=== PATIENT | male | born 1975 | race Caucasian/White ===

== ENCOUNTER 2024-06-16 16:21 | Observation (INO) | payer BC, SELFPAY ==
[2024-06-16 16:22] VITALS: BP 162/112; PULSE 97; RESP 16; TEMP 36.2; O2SAT 98; BMI 22.6
--- NOTE | 2024-06-16 17:43 | EKG12_ITS ---
Test Reason : CP Blood Pressure : / mmHG Vent. Rate : 076 BPM Atrial Rate : 076 BPM P-R Int : 140 ms QRS Dur : 088 ms QT Int : 368 ms P-R-T Axes : 078 078 060 degrees QTc Int : 414 ms Normal sinus rhythm Normal ECG Confirmed by SCOTTY WILKERSON, PATRICIA ([id number]), material expeditor ANDRZEJ QUINTERO ([id number]) on 06/17/2024 1:41:59 PM Referred By: Mauricio Go Confirmed By:PATRICIA FAJARDO MD
--- NOTE | 2024-06-16 17:55 | RAD_ITS ---
INDICATION: chest pain EXAMINATION/TECHNIQUE: X-RAY - XR Chest 2 Views COMPARISON: None. FINDINGS: The lungs are clear. The cardiomediastinal silhouette is unremarkable. No pleural effusion or pneumothorax. No acute osseous abnormalities. RAD/Chest PA and Lateral IMPRESSION: No acute radiographic abnormalities. Electronically Signed: Kavin Kirk MD at 18:10 EDT ,
[2024-06-16 17:58] LABS: Absolute Lymphocyte Count 2.67 X10^3/uL (0.83-4.51); Absolute Neutrophil Count 3.5 X10^3/uL (2.0-7.7); Basophil# 0.06 X10^3/uL; Basophil% 0.9 % (0-1); Eosinophil# 0.14 X10^3/uL; Eosinophils% 2.1 % (0-5); Hematocrit 42.7 % (40-54); Hemoglobin 14.7 g/dL (13.0-16.5); Lymphocyte # 2.67 X10^3/ul (0.83-4.51); Lymphocyte % 39.6 % (19-41); Mean Corp Hgb Conc 34.4 g/dL (32-36); Mean Corpuscular Hgb 30.3 pg (27.0-32.0); Monocyte# 0.42 X10^3/uL; Monocyte% 6.2 % (0-10); NRBC Flagged by Analyzer 0 % (0-5); Neutrophil # 3.45 X10^3/uL (2.7-7.7); Neutrophil % 51.1 % (47-70); Platelet Count 263 K/mm3 (150-450); RBC Distribution Width CV 11.9 % (11.6-14.6); RBC Distribution Width SD 38.7 fl (35.1-43.9); Red Blood Count 4.85 M/mm3 (4.6-6.2); White Blood Count 6.8 K/mm3 (4.4-11.0)
[2024-06-16 18:27] LABS: Anion Gap 5 (5-15); BUN 16 mg/dL (7-18); BUN/Creat Ratio 16.1 RATIO (10-20); Calcium,Total 9.4 mg/dL (8.5-10.1); Chloride 106 mmol/L (98-107); Creatinine, Serum 0.99 mg/dL (0.70-1.30); EST Glomerular Filtration Rate 85 mL/min (>60); Est Glom Filt Rate - Afr Amer 103 mL/min (>60); Estimated Creatinine Clearance 101.92 ml/min; Glucose 100 mg/dL (74-106); Potassium 3.9 mmol/L (3.5-5.1); Sodium Level 139 mmol/L (136-145); Troponin-I HS (w/2H Reflex) 7 pg/mL (3.0-78.0)
--- NOTE | 2024-06-16 18:29 | EDS_ITS ---
<Statement entered by Mauricio Go DO - 06/16/24 21:05> Patient was seen and examined with nurse tuan Flores All components of the history and physical confirmed and agreed. History of present illness and physical exam: Patient is a 49-year-old male with past medical history hypertension who presented to the emergency department for the chief complaint of chest pain that has been progressively worsening for the past month. He states that over the last month whenever he exerts himself trying to exercise lift something he gets left-sided chest pain. He states that he has been under a lot of stress recently as well. He states that his family has a strong history of heart disease and his brother had his first heart attack at 39 and a CABG with this heart attack. He states that he went on a walk yesterday evening with his and noted that he developed worsening symptoms he had to stop as he was having shortness of breath and chest pain. He states that when he stops his pain improves. He states that he has not had any cardiac evaluation in the past. Review of systems: Agree with above Physical exam: Agree with above MDM Patient is a 49-year-old male who presented to the emerged part with a chief complaint of left-sided chest pain. Patient will have a workup performed here on the differential diagnose includes Melamin to stable angina, ACS, pneumonia. Once workup is obtained reviewed he will be reevaluated. Patient CBC reviewed and showed no evidence leukocytosis white blood count normal at 6.8, hemoglobin stable 14.7, platelet count normal at 263. Patient sodium was noted to be normal at 139, potassium normal 3.9, creatinine normal at 0.99. Patient's troponin was normal at 7, TSH normal at 1.16. Patient's chest x-ray was reviewed as well and showed no acute radiographic abnormalities. This was reviewed by myself as well as by radiology. At this point time do believe the patient will warrant admission for further cardiac testing as he has a strong family history of heart disease at a young age and he has had progressively worsening symptoms as noted above. Patient case was discussed with hospitalist by Mark nurse practitioner who accept patient for admission. Patient was notified with all question concerns answered he is agreeable with this plan Final impression: Chest pain Disposition: Patient will be admitted to the hospital for further evaluation management Supervising attending attestation: Mauricio Go D.O. [facility] History of Present Illness Chief Complaint: Chest Pain Narrative Narrative: 49-year-old male with history of hypertension who presents to the emergency department for 1 month of chest pain. Pay states of the last month, whenever he exerts himself, which means trying to exercise, lifting something to help out of the house, he gets left-sided chest pain. Patient states has been under a great deal of stress as well. He does have some family history of CAD as well as a older brother that had his first heart attack at 39. Patient was having worsening pain with walking with his last evening, and she wants him to come get checked out. Patient denies any diaphoresis, denies any nausea or vomiting. Denies any history of blood clots to the legs or lungs, [place] any recent travel [facility] Medical History (Updated 06/16/24 @ 19:35 by SHARON Clayton) Anxiety and depression HTN (hypertension) Home Medications ?Medication ?Instructions ?Recorded ?Last Taken ?Type bupropion HCl 150 mg tablet,12 hr 150 mg PO DAILY 06/16/24 06/16/24 History sustained-release hydroxyzine HCl 25 mg tablet 25 mg PO QHS PRN insomnia 06/16/24 06/15/24 History losartan 25 mg tablet 25 mg PO DAILY 06/16/24 06/16/24 History sildenafil 50 mg tablet 50 mg PO DAILY PRN intercourse 06/16/24 Unknown History Allergy/AdvReac Type Severity Reaction Status Date / Time Penicillins (PCN) Allergy Mild Rash Verified 06/16/24 16:24 pollen extracts (pollens) Allergy Mild Other Verified 06/16/24 16:24 Social History Smoking Status: Never smoker ROS ROS ED ROS Narrative Constitutional: Negative for fever, chills, weight loss, weakness Eyes: Negative for vision loss, vision change, double vision ENT: Negative for any sore throat, ear pain, congestion Cardiovascular: Negative for any tightness, palpitations. Positive for left- sided chest pain Respiratory: Negative for any cough, sputum production, hemoptysis, dyspnea, dyspnea on exertion, orthopnea Gastrointestinal: Negative for any abdominal pain, nausea, vomiting, diarrhea, constipation, blood in stool, blood in vomit : Negative for any urinary frequency, dysuria, retention, blood in urine Muscle skeletal: Negative for any neck pain, back pain Neurological: Negative for any headache, syncope, dizziness Skin: Negative for any rashes, itching, abrasions, lacerations Psychiatric: Negative for any depression, anxiety, stress, suicidal ideation, homicidal ideation Hematologic: Negative for any excessive bruising, easy bleeding EXAM Physical Exam Narrative Exam Narrative: Vital signs reviewed. HEET: Head normocephalic atraumatic, TMs clear bilaterally. Posterior pharynx is clear, moist mucous membranes. Nares clear bilaterally. Neck: Supple with no lymphadenopathy or tenderness. No signs of meningismus. Cardiac: Irregular rhythm such as a PAC, no murmurs gallops or rubs, equal peripheral pulses bilaterally. Respiratory: Lungs clear to auscultation bilaterally. No chest tenderness. Abdomen: Soft, nontender, nondistended. No abdominal bruit or pulsatile masses. No hepatosplenomegaly Extremities: No peripheral edema, no signs of gross trauma or deformity. Active full range of motion of all extremities. Neuro: Cranial nerves II through XII intact, no focal neurological deficits. Skin: Clean dry and intact with no rash, purpura, petechiae, vesicles or pustules. Backs/flank: No CVA tenderness, no midline spinal tenderness, no deformity. Psych: Normal mood and affect. No SI, HI or acute psychosis. Const Vital Signs: 06/16/24 16:22 06/16/24 17:52 06/16/24 18:43 Temperature 97.1 F L Temperature Source Oral Pulse Rate 97 70 Respiratory Rate 16 11 L Respiratory Effort Normal Non-Labored Blood Pressure 162/112 H 131/93 H Blood Pressure Mean 128 105 Pulse Ox 98 96 Oxygen Delivery Method Room Air Room Air 06/16/24 19:31 Temperature 97.8 F Temperature Source Pulse Rate 73 Respiratory Rate 14 Respiratory Effort Blood Pressure 131/93 H Blood Pressure Mean 105 Pulse Ox 96 Oxygen Delivery Method [facility] Lab Data Labs: Laboratory Results - last 24 hr 06/16/24 17:51 WBC 6.8 RBC 4.85 Hgb 14.7 Hct 42.7 MCV 88.0 MCH 30.3 MCHC 34.4 RDW Std Deviation 38.7 RDW Coeff of Sharon 11.9 Plt Count 263 MPV 10.0 Immature Gran % (Auto) 0.100 Neut % (Auto) 51.1 Lymph % (Auto) 39.6 Long % (Auto) 6.2 Eos % (Auto) 2.1 Baso % (Auto) 0.9 Absolute Neuts (auto) 3.5 Absolute Lymphs (auto) 2.67 Nucleated RBC % 0 Sodium 139 Potassium 3.9 Chloride 106 Carbon Dioxide 28.0 Anion Gap 5 BUN 16 Creatinine 0.99 Estim Creat Clear Calc 101.92 Est GFR (MDRD) Af Amer 103 Est GFR (MDRD) Non-Af 85 BUN/Creatinine Ratio 16.1 Glucose 100 Calcium 9.4 Troponin I High Sens 7 TSH 1.160 Radiography Diagnostic Testing: Clinical Impression(s) from Imaging Studies Chest X-Ray 06/16/24 17:55 IMPRESSION: No acute radiographic abnormalities. Electronically Signed: Kavin Kirk MD at 18:10 EDT , EKG Normal sinus rhythm: Attestation: I personally reviewed and interpreted this EKG as follows: Comments: Normal sinus rhythm, rate of 76 bpm, CT 140 ms, QRS duration 88 ms, no acute ST elevation, no acute infarct noted. Treatment and Re-Evaluation :: Differential diagnosis includes however is not limited to: ACS, FL, unstable angina, anxiety, GERD Patient appears generally well, vital signs are stable, patient is nontoxic- appearing. Presenting to the emergency department complaints of left-sided chest pain for a month worse with exertion. Patient will receive a full cardiac workup including 2 troponins, basic laboratory values as well as chest x-ray. All radiologic examinations were read, reviewed by the emergency department attending. From these reads, a plan of care will be put in place. Patient is currently not having pain at this time. Patient's chest x-ray two-view shows no acute radiographic abnormalities. Patient's laboratory values showed a normal CBC, patient's chemistries are unremarkable. Patient's troponin initially was negative. TSH was normal at 1.16. Secondary the patient's story, exertional chest pain, family history, do we have the patient should be admitted to the hospital for a stress test. I will reach out to the hospitalist. Patient is agreeable with the plan Spoke with hospitalist. Patient stable for admission. Discharge Plan Triage Chief Complaint: Chest Pain ED Midlevel Provider: Mark Fernandes ED Provider: Go,Mauricio Dx/Rx/DC Orders Clinical Impression: Stable angina, Chest pain on exertion Prescriptions: No Action bupropion HCl 150 mg tablet sustained-release 12 hr 150 mg PO DAILY hydroxyzine HCl 25 mg tablet 25 mg PO QHS PRN (Reason: insomnia) sildenafil 50 mg tablet 50 mg PO DAILY PRN (Reason: intercourse) losartan 25 mg tablet 25 mg PO DAILY Primary Care Provider: Eric Hawthorne Referrals: Eric Hawthorne PA [Primary Care Provider] - Print Language: [place] Disposition Disposition: Acute Care Hospital [facility]
[2024-06-16 18:43] VITALS: BP 131/93; PULSE 70; RESP 11; O2SAT 96
[2024-06-16 19:31] VITALS: BP 131/93; PULSE 73; RESP 14; TEMP 36.6; O2SAT 96
--- NOTE | 2024-06-16 19:32 | PCM.HP.STD ---
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 ED on 06/16/24 with history of 1 approximately month of intermittent chest discomfort primarily when he exerts himself specifically reporting it to occur with exercise often lifting with left-sided discomfort with family history of CAD including older brother with his first HI at the age of 39 with worsening discomfort of the last 24 hours while even walking with his who eventually prompted him to come to the ED to have a more thorough evaluation to be cautious. He reports the discomfort primarily of the left side of the chest as a burning sensation 5-6 out of 10 at severity at its worst when it is occurring with no associated nausea, emesis, diaphoresis or dyspnea but he does report left upper extremity mild paresthesia involvement with these occasions quickly resolving once he rests. In the ED upon evaluation he is resting and denying any current chest discomfort. Workup in the ED included T97.1, heart 97, BP 162/112, respiratory rate 16, and 8% room air with most recent repeat vitals heart rate 70, BP 131/93, respiratory rate 11, 96% room air, CBC with WBC 6.8, human 14.7, platelet 263 without marked shift, BMP unremarkable, troponin 7, TSH 1.160, chest x-ray with no acute cardiopulmonary findings, EKG with sinus rhythm with no acute evidence of ischemia. In the ED patient administered no medications. [facility] Medical History Anxiety and depression HTN (hypertension) Home Medications ?Medication ?Instructions ?Recorded ?Last Taken ?Type bupropion HCl 150 mg tablet,12 hr 150 mg PO DAILY 06/16/24 06/16/24 History sustained-release hydroxyzine HCl 25 mg tablet 25 mg PO QHS PRN insomnia 06/16/24 06/15/24 History losartan 25 mg tablet 25 mg PO DAILY 06/16/24 06/16/24 History sildenafil 50 mg tablet 50 mg PO DAILY PRN intercourse 06/16/24 Unknown History Allergy/AdvReac Type Severity Reaction Status Date / Time Penicillins (PCN) Allergy Mild Rash Verified 06/16/24 16:24 pollen extracts (pollens) Allergy Mild Other Verified 06/16/24 16:24 Family History (Updated 06/16/24 @ 22:[address] Cheli Alarcon MD) Mother Carotid arterial disease Hypertension Father Hypertension CVA (cerebral vascular accident) Brother Hypertension Myocardial infarction First heart attack at age 39. CAD (coronary artery disease) Heart disease Surgical History (Updated 06/16/24 @ 22:[address] Cheli Alarcon MD) History of shoulder surgery Social History (Updated 06/16/24 @ 22:[address] Cheli Alarcon MD) household members: spouse, family and children Smoking Status: Never smoker alcohol intake: current alcohol intake frequency: holidays/special occasions only substance use type: does not use ROS ROS Narrative Admission Review of Systems: CONSTITUTIONAL: No weight loss, fever, chills, weakness or fatigue. HEENT: Eyes: No visual loss, blurred vision, double vision or yellow sclerae. Ears, Nose, Throat: No hearing loss, sneezing, congestion, runny nose or sore throat. SKIN: No rash or itching, lesions, wounds. CARDIOVASCULAR: + Chest discomfort/burning. No palpitations, edema, orthopnea, syncopal events. RESPIRATORY: No shortness of breath, cough or sputum, wheezing, hemoptysis. GASTROINTESTINAL: No anorexia, nausea, vomiting or diarrhea, abdominal pain, melena, BRBPR. GENITOURINARY: No dysuria, frequency, urgency or retention. NEUROLOGICAL: + Left upper extremity paresthesias with chest discomfort episodes. No headache, dizziness, syncope, paralysis, ataxia, focal weakness, change in bowel or bladder control, seizure. MUSCULOSKELETAL: + muscle, back pain, joint pain or stiffness. HEMATOLOGIC: No anemia, bleeding or bruising. LYMPHATICS: No enlarged nodes. No history of splenectomy. PSYCHIATRIC: + History of anxiety and depression. ENDOCRINOLOGIC: No reports of sweating, cold or heat intolerance. No polyuria or polydipsia. ALLERGIES: No history of asthma, hives, eczema or rhinitis. Vital Signs Vital Signs Vital Signs: 06/16/24 16:22 06/16/24 17:52 06/16/24 18:43 Temperature 97.1 F L Temperature Source Oral Pulse Rate 97 70 Respiratory Rate 16 11 L Respiratory Effort Normal Non-Labored Blood Pressure 162/112 H 131/93 H Blood Pressure Mean 128 105 Pulse Ox 98 96 Oxygen Delivery Method Room Air Room Air Weight Weight: 176 lb Body Mass Index (BMI) 22.6 Physical Exam Narrative Physical Examination: General: Awake, alert, oriented x 3 and cooperative, seated upright in the bed, denies any current chest discomfort. Skin: Normal color, normal turgor, no icterus, no cyanosis. HEENT: AT/NC, EOMI, PERRLA, MMM, no carotid bruits or JVD noted. Lungs: CTA bilaterally, moderate effort, mild decrease BL bases, no rales, ronchi or wheezing. Heart: Regular rate and rhythm; no gallop, rub audible. Abdomen: Soft, NTTP, ND, normal BS, no appreciated HSM. Extremities: No cyanosis, clubbing, or edema. Neurological: Patient awake, alert, oriented as noted, cognitive function intact; pupils equally reactive to light and accommodation, cranial nerves grossly normal, moving all 4 extremities, no focal deficits, strength preserved. Psychiatric: Affect appears mildly fatigued otherwise normal, no acute evidence of depressive or anxiety feelings but does report underlying history especially more stress with his job, notes family life is going very well. Results Lab / Micro Data 06/16/24 17:51 06/16/24 17:51 Labs: Laboratory Results - last 24 hr 06/16/24 17:51: WBC 6.8, RBC 4.85, Hgb 14.7, Hct 42.7, MCV 88.0, MCH 30.3, MCHC 34.4, RDW Std Deviation 38.7, RDW Coeff of Sharon 11.9, Plt Count 263, MPV 10.0, Immature Gran % (Auto) 0.100, Neut % (Auto) 51.1, Lymph % (Auto) 39.6, [place] % (Auto) 6.2, Eos % (Auto) 2.1, Baso % (Auto) 0.9, Absolute Neuts (auto) 3.5, Absolute Lymphs (auto) 2.67, Nucleated RBC % 0, Sodium 139, Potassium 3.9, Chloride 106, Carbon Dioxide 28.0, Anion Gap 5, BUN 16, Creatinine 0.99, Estim Creat Clear Calc 101.92, Est GFR (MDRD) Af Amer 103, Est GFR (MDRD) Non-Af 85, BUN/Creatinine Ratio 16.1, Glucose 100, Calcium 9.4, Troponin I High Sens 7, TSH 1.160 Imaging Radiology Impression Chest X-Ray 06/16/24 17:55 IMPRESSION: No acute radiographic abnormalities. Electronically Signed: Kavin Kirk MD at 18:10 EDT , Assessment & Plan Assessment/Plan (1) Chest pain: PLAN: Plan The patient is a 49 y/o M w/ PMHx: Anxiety and Depression/Chronic insomnia, HTN who presents to the [facility] ED on 06/16/24 with history of 1 month of intermittent chest discomfort primarily when he exerts himself specifically reporting it to occur with exercise often lifting with left-sided discomfort with family history of CAD including older brother with his first HI at the age of 39 with worsening discomfort of the last 24 hours while even walking with his who eventually prompted him to come to the ED to have a more thorough evaluation to be cautious. #1. Chest Pain: EKG in ED with no acute evidence of ischemia with sinus rhythm, CXR w/ no acute cardiopulmonary finding, initial trop 7. Will admit to PCU, place on a monitored bed to assure no acute myocardial infarction with serial cardiac enzymes and EKGs. If repeat serial cardiac enzymes and EKGs remain unremarkable will pursue a.m. cardiac exercise stress testing. FLP in AM. Magnesium level requested. Maintain on aspirin therapy, nitroglycerin as needed. UDS requested. #2. Hypertension: Continue home regimen including losartan with further adjustments as needed given BP upon presentation not within appropriate range, PRN hydralazine. #3. Anxiety and depression: We will continue patient on bupropion and hydroxyzine regimen. #4. DVT prophylaxis: Low risk. Charges/Coding Visit Charges Inpatient E&M: 37726 Init Hosp L2
[2024-06-16 19:55] LABS: Reflex Troponin-HS? (from REC) Y
[2024-06-16 20:42] VITALS: BMI 21.9
[2024-06-16 20:45] VITALS: BP 141/104; PULSE 58; RESP 18; TEMP 36.4; O2SAT 94
[2024-06-16 20:47] LABS: Magnesium 2.1 mg/dL (1.6-2.6)
[2024-06-16 21:11] LABS: Amphetamine Urine NEGATIVE (<1000 ng/mL); Barbiturate Urine VISTA NEGATIVE (< 200 ng/mL); Benzodiazepine Urine VISTA NEGATIVE (< 200 ng/mL); Cocaine Urine VISTA NEGATIVE (< 300 ng/mL); Ecstacy Urine VISTA NEGATIVE (< 500 ng/mL); Methadone Urine VISTA NEGATIVE (< 300 ng/mL); Opiates Urine NEGATIVE (< 300 ng/mL); PCP Urine NEGATIVE (< 25 ng/mL); THC Urine VISTA NEGATIVE (< 50 ng/mL); Vista UDS pH Range 7
[2024-06-16] MEDS: hydrOXYzine PAM 25 MG Capsule PO (21:59)
[2024-06-16] MEDS: Losartan Potassium 25 MG Tablet PO (21:59)
[2024-06-16] MEDS: Aspirin 325 MG Tablet PO (22:01)
[2024-06-16 22:32] LABS: Troponin-I HS 8 pg/mL (3.0-78.0)
[2024-06-16 23:41] LABS: Troponin-I HS 7 pg/mL (3.0-78.0)
[2024-06-17] VITALS (17 sets, daily range): BP systolic 115–137; BP diastolic 79–98; PULSE 59–81; RESP 16–18; TEMP 36.1–36.4; O2SAT 96–99
[2024-06-17] MEDS: Aspirin 81 MG TAB.CHEW PO (05:53)
[2024-06-17] MEDS: Losartan Potassium 25 MG Tablet PO (05:53)
--- NOTE | 2024-06-17 05:55 | EKG12_ITS ---
Test Reason : AM Blood Pressure : / mmHG Vent. Rate : 062 BPM Atrial Rate : 062 BPM P-R Int : 144 ms QRS Dur : 092 ms QT Int : 414 ms P-R-T Axes : 068 041 039 degrees QTc Int : 420 ms Normal sinus rhythm Normal ECG When compared with ECG of 16-JUN-2024 21:43, MANUAL COMPARISON REQUIRED, DATA IS UNCONFIRMED Confirmed by SCOTTY WILKERSON, PATRICIA ([id number]), primer expeditor and drier ATUL PIZARRO ([id number]) on 06/21/2024 11:26:10 AM Referred By: Mauricio Go Confirmed By:PATRICIA FAJARDO MD
[2024-06-17 06:28] LABS: Absolute Lymphocyte Count 2.35 X10^3/uL (0.83-4.51); Absolute Neutrophil Count 2.6 X10^3/uL (2.0-7.7); Basophil# 0.07 X10^3/uL; Basophil% 1.2 % (0-1); Eosinophil# 0.21 X10^3/uL; Eosinophils% 3.7 % (0-5); Hematocrit 42.6 % (40-54); Hemoglobin 14.5 g/dL (13.0-16.5); Lymphocyte # 2.35 X10^3/ul (0.83-4.51); Lymphocyte % 41.1 % (19-41); Mean Corpuscular Hgb 30.5 pg (27.0-32.0); Mean Corpuscular Volume 89.7 fL (80-94); Mean Platelet Vol. 10.3 fl (6.2-12.0); Monocyte# 0.46 X10^3/uL; NRBC Flagged by Analyzer 0 % (0-5); Neutrophil # 2.62 X10^3/uL (2.7-7.7); Neutrophil % 45.8 % (47-70); Platelet Count 244 K/mm3 (150-450); RBC Distribution Width CV 11.9 % (11.6-14.6); Red Blood Count 4.75 M/mm3 (4.6-6.2); White Blood Count 5.7 K/mm3 (4.4-11.0)
[2024-06-17 06:56] LABS: ALB/GLOB Ratio 1.1 RATIO (0.9-2.4); AST(SGOT) 14 U/L (15-37); Alanine Aminotransfer ALT/SGPT 26 U/L (16-61); Albumin, Serum 3.7 g/dL (3.2-5.0); Alkaline Phosphatase 76 U/L (45-117); Anion Gap 3 (5-15); BUN 15 mg/dL (7-18); BUN/Creat Ratio 15.7 RATIO (10-20); Calcium,Total 8.9 mg/dL (8.5-10.1); Chloride 108 mmol/L (98-107); Cholesterol 184 mg/dL (200); Creatinine, Serum 0.95 mg/dL (0.70-1.30); EST Glomerular Filtration Rate 89 mL/min (>60); Est Glom Filt Rate - Afr Amer 108 mL/min (>60); Estimated Creatinine Clearance 102.97 ml/min; Globulin 3.4 g/dL (2.2-4.2); Glucose 90 mg/dL (74-106); High Density Lipoprotein 49 mg/dL; Potassium 3.9 mmol/L (3.5-5.1); Protein, Total 7.1 g/dL (6.4-8.2); Sodium Level 140 mmol/L (136-145); Triglycerides 81 mg/dL; Very Low Density Lipoprotein 16 mg/dL (5-40)
--- NOTE | 2024-06-17 08:00 | PN.HOSP_ITS ---
Reason for Visit Reason for Visit: Diagnoses Chest pain, unspecified (06/16/24) Subjective Subjective Patient is a 49-year-old gentleman presenting with chest pain Objective Data Objective Data Vital Signs: Vital Signs Temp Pulse Resp BP Pulse Ox O2 Del Method 97.6 F L 67 18 123/79 H 98 Room Air 06/17/24 03:00 06/17/24 03:00 06/17/24 03:00 06/17/24 03:00 06/17/24 03:00 06/17/24 03:00 Oxygen Delivery Method Room Air Weight: 77.4 kg Body Mass Index (BMI) 21.9 Lab / Micro Data 06/17/24 06:12 06/17/24 06:12 Labs: Laboratory Results - last 24 hr 06/16/24 17:51: WBC 6.8, RBC 4.85, Hgb 14.7, Hct 42.7, MCV 88.0, MCH 30.3, MCHC 34.4, RDW Std Deviation 38.7, RDW Coeff of Sharon 11.9, Plt Count 263, MPV 10.0, Immature Gran % (Auto) 0.100, Neut % (Auto) 51.1, Lymph % (Auto) 39.6, [place] % (Auto) 6.2, Eos % (Auto) 2.1, Baso % (Auto) 0.9, Absolute Neuts (auto) 3.5, Absolute Lymphs (auto) 2.67, Nucleated RBC % 0, Sodium 139, Potassium 3.9, Chloride 106, Carbon Dioxide 28.0, Anion Gap 5, BUN 16, Creatinine 0.99, Estim Creat Clear Calc 101.92, Est GFR (MDRD) Af Amer 103, Est GFR (MDRD) Non-Af 85, BUN/Creatinine Ratio 16.1, Glucose 100, Calcium 9.4, Troponin I High Sens 7, TSH 1.160 06/16/24 20:30: Magnesium 2.1 06/16/24 20:42: Urine Opiates Screen NEGATIVE, Urine Methadone Screen NEGATIVE, Ur Barbiturates Screen NEGATIVE, Ur Phencyclidine Scrn NEGATIVE, Ur Amphetamines Screen NEGATIVE, MDMA (Ecstasy) Screen NEGATIVE, U Benzodiazepines Scrn NEGATIVE, Urine Cocaine Screen NEGATIVE, U Cannabinoids Screen NEGATIVE, Ur Drug Screen Comment 06/16/24 20:47: Troponin I High Sens 8 06/16/24 22:55: Troponin I High Sens 7 06/17/24 06:12: WBC 5.7, RBC 4.75, Hgb 14.5, Hct 42.6, MCV 89.7, MCH 30.5, MCHC 34.0, RDW Std Deviation 39.0, RDW Coeff of Sharon 11.9, Plt Count 244, MPV 10.3, Immature Gran % (Auto) 0.200, Neut % (Auto) 45.8 L, Lymph % (Auto) 41.1 H, [place] % (Auto) 8.0, Eos % (Auto) 3.7, Baso % (Auto) 1.2 H, Absolute Neuts (auto) 2.6, Absolute Lymphs (auto) 2.35, Nucleated RBC % 0, Sodium 140, Potassium 3.9, C hloride 108 H, Carbon Dioxide 28.0, Anion Gap 3 L, BUN 15, Creatinine 0.95, Estim Creat Clear Calc 102.97, Est GFR (MDRD) Af Amer 108, Est GFR (MDRD) Non-Af 89, BUN/Creatinine Ratio 15.7, Glucose 90, Calcium 8.9, Total Bilirubin 0.60, A ST 14 L, ALT 26, Alkaline Phosphatase 76, Total Protein 7.1, Albumin 3.7, Globulin 3.4, Albumin/Globulin Ratio 1.1, Triglycerides 81, Cholesterol 184, LDL Cholesterol 119, VLDL Cholesterol 16, HDL Cholesterol 49 Radiography Diagnostic Testing: Radiology Impression Chest X-Ray 06/16/24 17:55 IMPRESSION: No acute radiographic abnormalities. Electronically Signed: Kavin Kirk MD at 18:10 EDT , Physical Exam Narrative GENERAL: cooperative HEENT: Atraumatic; normocephalic EYES; Anicteric, Normal Conjunctiva NECK; supple, normal thyroid, RESPIRATORY: Diminished to auscultation CARDIOVASCULAR: Regular S1 S2, GI: soft, normoactive bowel sounds, : No Renal angle tenderness; EXTREMITIES: No edema, no clubbing, MUSCULOSKELETAL: no muscle wasting NEURO: Awake; no lateralizing signs. SKIN: No Rash PSYCH; Flat affect Assessment & Plan Assessment/Plan (1) Chest pain: PLAN: Plan Patient is a 49-year-old gentleman presenting with chest pain 1. Chest pain ? Patient has been admitted to a monitored bed plan is to rule out [place] with serial cardiac enzymes plan is for patient to undergo subsequent evaluation with a nuclear stress test ? Patient stress test came back positive for stress-induced ischemia. Case discussed with Dr. Rm plans for patient to undergo left heart catheterization with intervention if warranted 2. Hypertension ? Blood pressure controlled, home medications continued with dose adjustment as needed 3. Depression with anxiety ? Patient is on bupropion as well as hydroxyzine did continue 4. DVT prophylaxis ? SC Lovenox Time spent in the patient's overall evaluation,decision-making process, review of diagnostic data, adjustment of management, discussion with other providers, nursing nursing and ancillary staff involved in patient's care documentation, 45 minutes Charges/Coding Visit Charges Inpatient E&M: 54058 Subs Hosp L2
[2024-06-17] MEDS: buPROPion (SR) 150 MG Tablet.SA PO (09:47)
--- NOTE | 2024-06-17 10:57 | STRESSREP_ITS ---
Stress Test Report Date: 06/17/2024 Procedure: Exercise tolerance test/imaging study Indications: Chest pain Consent: Per the patient Procedure: The patient exercised on a Sarmad protocol for 9 minutes achieving a peak heart rate of 144 bpm (84% predicted maximal heart rate) with a peak blood pressure 140/72 mmHg and a peak MET capacity of 10.1 METs. The baseline ECG demonstrated normal sinus rhythm. The peak exercise ECG demonstrated sinus tachycardia with upsloping ST depressions in the inferior and lateral leads. EKG during recovery revealed about [address] depressions about 3 to 4 minutes into recovery in the inferior leads and to a lesser extent in the lateral leads. [There were no cardiac dysrhythmias pretest, during exercise, or recovery]. The functional capacity was considered normal for age. Patient had chest pain with exertion that resolved around 4 minutes into recovery. The examination was discontinued secondary to chest pain. Impression: 1. Technically adequate exercise tolerance test 2. Stress test is positive for exercise-induced EKG changes of ischemia 3. The test test is positive for exercise-induced chest pain 4. Functional capacity is normal for age 5. Nuclear images pending Myocardial perfusion imaging study: Technique: The patient was injected with 11.4 mCi of technetium 99m Cardiolite and subsequently rest SPECT Cardiolite nuclear imaging was obtained in the horizontal long, vertical long, and short axis views. The patient exercised on a Sarmad protocol. Please see above for details. The patient was injected with 34.2 mCi of technetium 99m Cardiolite and subsequently stress SPECT Cardiolite nuclear imaging was obtained in the horizontal long, vertical long, and short axis views. A gated Cardiolite study at peak stress was obtained. Interpretation: Rest and stress SPECT Cardiolite nuclear imaging status post realignment, normalization, and attenuation correction, demonstrates no significant defects on the rest images. On the stress images there is decreased myocardial radioisotope uptake in the septum, distal anterior wall and apex suggestive of ischemia involving these territories. The gated Cardiolite study demonstrates mild apical hypokinesis. The reported LVEF is 59%. Impression: 1. There is evidence of ischemia involving the septum, distal anterior wall and apex. 2. The gated Cardiolite study reports an LVEF of 59%. This note was generated with [employer] software. It may contain incorrect words, spelling, and punctuation that were not noted in checking the note before signing.
--- NOTE | 2024-06-17 11:32 | NURSING ---
Gave repot to Angel in cathode washer
--- NOTE | 2024-06-17 11:43 | CON.PCM.CA_ITS ---
Assessment & Plan Assessment/Plan (1) Chest pain on exertion: PLAN: Patient has new onset angina and abnormal stress test. Discussed treatment options in detail with the patient including risks and benefits. We will proceed with coronary angiography. Patient understands the risks and benefits and wishes to proceed. Rest of the management will be based on angiographic findings. HPI Consult Data Date of Consult: 06/17/24 HPI Narrative Reason for Consultation: Chest pain, abnormal stress test HPI Narrative: BOOM ROJAS, is a 49 M who presents chest pain on exertion that has been going on for about a month. He underwent stress testing today which revealed possible ischemia involving the LAD territory. Review of systems: All systems reviewed. All else is negative except that in HPI [facility] Medical History Anxiety and depression HTN (hypertension) Home Medications ?Medication ?Instructions ?Recorded ?Last Taken ?Type bupropion HCl 150 mg tablet,12 hr 150 mg PO DAILY 06/16/24 06/16/24 History sustained-release hydroxyzine HCl 25 mg tablet 25 mg PO QHS PRN insomnia 06/16/24 06/15/24 History losartan 25 mg tablet 25 mg PO DAILY 06/16/24 06/16/24 History sildenafil 50 mg tablet 50 mg PO DAILY PRN intercourse 06/16/24 Unknown History Allergy/AdvReac Type Severity Reaction Status Date / Time Penicillins (PCN) Allergy Mild Rash Verified 06/16/24 16:24 pollen extracts (pollens) Allergy Mild Other Verified 06/16/24 16:24 Family History (Updated 06/16/24 @ 22:[address] Cheli Alarcon MD) Mother Carotid arterial disease Hypertension Father Hypertension CVA (cerebral vascular accident) Brother Hypertension Myocardial infarction First heart attack at age 39. CAD (coronary artery disease) Heart disease Surgical History (Updated 06/16/24 @ 22:[address] Cheli Alarcon MD) History of shoulder surgery Social History (Updated 06/16/24 @ 22:[address] Cheli Alarcon MD) household members: spouse, family and children Smoking Status: Never smoker alcohol intake: current alcohol intake frequency: holidays/special occasions only substance use type: does not use Physical Exam Const alert and oriented x3 HEENT normocephalic Eyes no scleral icterus Resp normal respiratory effort Cardio regular rate and regular rhythm Psych mental status grossly normal Risk Stratification Risk Stratification Applicable: No Charges/Coding Visit Charges Inpatient E&M: 95717 Init Hosp L1 Objective Data Vital Signs: Vital Signs Temp Pulse Resp BP Pulse Ox O2 Del Method 97.5 F L 69 18 122/88 H 97 Room Air 06/17/24 09:45 06/17/24 09:45 06/17/24 09:45 06/17/24 09:45 06/17/24 09:45 06/17/24 09:45 Oxygen Delivery Method Room Air Weight: 170 lb 10.205 oz Body Mass Index (BMI) 21.9 Lab / Micro Data 06/17/24 06:12 06/17/24 06:12 Labs: Laboratory Results - last 24 hr 06/16/24 17:51: WBC 6.8, RBC 4.85, Hgb 14.7, Hct 42.7, MCV 88.0, MCH 30.3, MCHC 34.4, RDW Std Deviation 38.7, RDW Coeff of Sharon 11.9, Plt Count 263, MPV 10.0, Immature Gran % (Auto) 0.100, Neut % (Auto) 51.1, Lymph % (Auto) 39.6, Hemphill % (Auto) 6.2, Eos % (Auto) 2.1, Baso % (Auto) 0.9, Absolute Neuts (auto) 3.5, Absolute Lymphs (auto) 2.67, Nucleated RBC % 0, Sodium 139, Potassium 3.9, Chloride 106, Carbon Dioxide 28.0, Anion Gap 5, BUN 16, Creatinine 0.99, Estim Creat Clear Calc 101.92, Est GFR (MDRD) Af Amer 103, Est GFR (MDRD) Non-Af 85, BUN/Creatinine Ratio 16.1, Glucose 100, Calcium 9.4, Troponin I High Sens 7, TSH 1.160 06/16/24 20:30: Magnesium 2.1 06/16/24 20:42: Urine Opiates Screen NEGATIVE, Urine Methadone Screen NEGATIVE, Ur Barbiturates Screen NEGATIVE, Ur Phencyclidine Scrn NEGATIVE, Ur Amphetamines Screen NEGATIVE, MDMA (Ecstasy) Screen NEGATIVE, U Benzodiazepines Scrn NEGATIVE, Urine Cocaine Screen NEGATIVE, U Cannabinoids Screen NEGATIVE, Ur Drug Screen Comment 06/16/24 20:47: Troponin I High Sens 8 06/16/24 22:55: Troponin I High Sens 7 06/17/24 06:12: WBC 5.7, RBC 4.75, Hgb 14.5, Hct 42.6, MCV 89.7, MCH 30.5, MCHC 34.0, RDW Std Deviation 39.0, RDW Coeff of Sharon 11.9, Plt Count 244, MPV 10.3, Immature Gran % (Auto) 0.200, Neut % (Auto) 45.8 L, Lymph % (Auto) 41.1 H, Hemphill % (Auto) 8.0, Eos % (Auto) 3.7, Baso % (Auto) 1.2 H, Absolute Neuts (auto) 2.6, Absolute Lymphs (auto) 2.35, Nucleated RBC % 0, Sodium 140, Potassium 3.9, C hloride 108 H, Carbon Dioxide 28.0, Anion Gap 3 L, BUN 15, Creatinine 0.95, Estim Creat Clear Calc 102.97, Est GFR (MDRD) Af Amer 108, Est GFR (MDRD) Non-Af 89, BUN/Creatinine Ratio 15.7, Glucose 90, Calcium 8.9, Total Bilirubin 0.60, A ST 14 L, ALT 26, Alkaline Phosphatase 76, Total Protein 7.1, Albumin 3.7, Globulin 3.4, Albumin/Globulin Ratio 1.1, Triglycerides 81, Cholesterol 184, LDL Cholesterol 119, VLDL Cholesterol 16, HDL Cholesterol 49 Cardiology Labs/Tests 06/16/24 17:51: WBC 6.8, RBC 4.85, Hgb 14.7, Hct 42.7, MCV 88.0, MCH 30.3, MCHC 34.4, Plt Count 263, MPV 10.0, Immature Gran % (Auto) 0.100, Neut % (Auto) 51.1, Lymph % (Auto) 39.6, Hemphill % (Auto) 6.2, Eos % (Auto) 2.1, Baso % (Auto) 0.9, Absolute Neuts (auto) 3.5, Nucleated RBC % 0, Sodium 139, Potassium 3.9, Chloride 106, Carbon Dioxide 28.0, Anion Gap 5, BUN 16, Creatinine 0.99, Est GFR (MDRD) Af Amer 103, Est GFR (MDRD) Non-Af 85, BUN/Creatinine Ratio 16.1, Glucose 100, Calcium 9.4 06/16/24 20:30: Magnesium 2.1 06/17/24 06:12: WBC 5.7, RBC 4.75, Hgb 14.5, Hct 42.6, MCV 89.7, MCH 30.5, MCHC 34.0, Plt Count 244, MPV 10.3, Immature Gran % (Auto) 0.200, Neut % (Auto) 45.8 L, Lymph % (Auto) 41.1 H, Hemphill % (Auto) 8.0, Eos % (Auto) 3.7, Baso % (Auto) 1.2 H, Absolute Neuts (auto) 2.6, Nucleated RBC % 0, Sodium 140, Potassium 3.9, C hloride 108 H, Carbon Dioxide 28.0, Anion Gap 3 L, BUN 15, Creatinine 0.95, Est GFR (MDRD) Af Amer 108, Est GFR (MDRD) Non-Af 89, BUN/Creatinine Ratio 15.7, Glucose 90, Calcium 8.9, Total Bilirubin 0.60, Triglycerides 81, Cholesterol 184, LDL Cholesterol 119, VLDL Cholesterol 16, HDL Cholesterol 49 Rhythm: EKG: ECHO: Stress Test: Cardiac Cath: PCI: CT Surgery: Holter monitor: EPS: PPM: CXR: Chest CT Scan: Radiography Diagnostic Testing: Radiology Impression Chest X-Ray 06/16/24 17:55 IMPRESSION: No acute radiographic abnormalities. Electronically Signed: Kavin Kirk MD at 18:10 EDT ,
[2024-06-17] MEDS: 0.9% Normal Saline (1000mL) 1,000 ML 75 ML IV (13:00)
--- NOTE | 2024-06-17 13:36 | CL.I_ITS ---
Patient Name: BOOM ROJAS Study Date: 06/17/2024 Performing: Golden Rm MD Ht: 74 inches 187.96 cm : 1975 Wt: 170.64 lbs 77.4 kg Age: 49 Gender: male BSA: 2.03 PROCEDURE(S) PERFORMED DC02-(09670)LHC/COR IC12-(28865/C9600)DANO W/WO PTCA, SINGLE CORONARY ARTERY CLINICAL PROFILE AND CO-MORBIDITIES Indications: New Onset Angina <= 2 months Heart Failure: None Stress/Imaging Date: 06/17/24 Stress Test with SPECT MPI: Positive High Risk CONCLUSIONS CAD as described. Successful drug-eluting stent to mid LAD as described. RECOMMENDATIONS DESCRIPTION OF PROCEDURE The patient arrived to the procedure lab. The risks and benefits of the procedure as well as a full description of our services here and lack of surgical backup were fully explained to the patient and/or their significant other prior to the catheterization. The Timeout was completed, verifying the correct patient and procedure. The patient's procedural site was prepped and draped in the usual fashion. Local anesthetic was given subcutaneously to right radial region with Lidocaine 2%. Using a modified Seldinger technique, arterial access was obtained via the right radial artery, a 6Fr sheath was inserted.. Right Coronary Artery selective angiography was then performed in multiple views using a 5 Fr. JR 4 catheter. Left Coronary Artery selective angiography was performed in multiple views using a 5 Fr. JL3.5 catheterThe images were reviewed and options discussed. A decision was then made to proceed with an Intervention, IVUS or other adjunct procedure. xb3 Guide catheter was inserted and engaged into the LCA. bmw Guide wire was advanced to the LAD. Angiogram performed pre balloon dilatation. euphora 2.5x20 Balloon catheter was inserted. Balloon catheter was advanced across lesion in the LAD, mid. PTCA balloon inflated at 8 atms for 7 secs. PTCA balloon inflated at 8 atms for 6 secs. placido frontier 2.5x26 Drug Eluting stent was inserted. Drug Eluting stent was advanced across the lesion in the LAD, mid. Angiogram performed pre stent deployment. nc emerge 2.75x12 Balloon catheter was inserted. Balloon catheter was advanced across lesion in the LAD, mid. The arterial sheath was pulled and a TR Band was applied for hemostasis CORONARY ANGIOGRAPHY DOMINANCE: Right Dominant LEFT MAIN: Mild luminal irregularities LEFT ANTERIOR DESCENDING ARTERY: MID LAD: 90 % Stenosis, 85-90 % Stenosis, 25 % Stenosis CIRCUMFLEX ARTERY: MID CIRC: 40 % Stenosis RIGHT CORONARY ARTERY: PROX RCA: 20 % Stenosis INTERVENTION INFORMATION LESION SITE: LAD (Mid) Lesion Complexity: High/C, chronic total occlusion: No, lesion at bifurcation: Yes, thrombus present: No, lesion length: 24 mm, culprit lesion: Yes, Previously treated lesion: No Pre Stenosis: 90 % Pre intervention NURYS flow: 3 PROCEDURE: Drug Eluting Stent with pre and post dilatation Post Stenosis: 0 % Post intervention NURYS flow: 3 Lesion Devices: Mercedes .014 190cm BMW Calvert Straight Cordis 6 Fr XB3.0 100cm Guide Catheter Natan Sci NC EMERGE MR 2.75x12 BALLOON Medtronic 2.50 x 26 PLACIDO FRONTIER DANO COMPLICATIONS No Complications PROCEDURE MEDICATIONS Oxygen: 2 L/min via nasal cannula Heparin given IA 06/17/2024 12:04:42 Heparin 3000 unit(s) IV 06/17/2024 12:19:35 Verapamil 2.5mg, Ntg 100mcgs, 3000 units of Heparin given IA 06/17/2024 12:04:42 SUMMARY OF HEMODYNAMIC DATA Time AIR REST ECG 11:48:26 AO 102/64 (83) SA 12:06:48 AO 109/61 (82) 12:20:23 Signed By Golden Rm MD On 06/17/2024 14:33:34 Signed By Golden Rm MD On 06/17/2024 13:35:54 Golden Rm MD
--- NOTE | 2024-06-17 13:45 | EKG12_ITS ---
Test Reason : CP ADMIT Blood Pressure : / mmHG Vent. Rate : 061 BPM Atrial Rate : 061 BPM P-R Int : 152 ms QRS Dur : 088 ms QT Int : 412 ms P-R-T Axes : 067 052 022 degrees QTc Int : 414 ms Normal sinus rhythm Normal ECG When compared with ECG of 16-JUN-2024 16:28, MANUAL COMPARISON REQUIRED, DATA IS UNCONFIRMED Confirmed by SCOTTY WILKERSON, PATRICIA ([id number]), desk editor ATUL PIZARRO ([id number]) on 06/21/2024 9:24:38 AM Referred By: Mauricio Go Confirmed By:PATRICIA FAJARDO MD
--- NOTE | 2024-06-17 13:46 | CRPHASE1 ---
Patient Communication Patient Information Former Patient:: Phase I PHII Cardiac Rehab Discussed with Patient:: Yes Guide to Cardiac Rehab Given to Patient:: Yes Cardiac Rehab Facility Choice List Given to Patient:: Yes Communication to Cardiac Rehab Choice Program [facility] CR PHII:: Communication Given to CR and Refer to [facility] Choice Program Other:: Communication Given to CR Business Development Associate:: Kathleen Rm PCP:: Eric Hawthorne Phase II Cardiac Rehab:: Yes Post Discharge Choice Letter Given to Patient:: Yes Phase I Charge:: Level I - Education Medical/Surgical History Medical History Angina:: Yes Congestive Heart Failure: CVA/TIA: Surgical History PTCA:: Yes Ambulation Ambulation Notes:: INDEPENDT Cardiac Rehabilitation Info Program Information Cardiac Rehabilitation Program Information: Cardiac Rehab The cardiac rehab team at [facility] consists of highly skilled exercise physiologists, nurses, respiratory therapists and physicians working together with you. Our purpose is to help you have a full recovery and achieve the goals you set for yourself. Over the years many of our patients have returned to activities they assumed they would never do again! We can help restore your confidence and motivation to make lifestyle changes that can have a significant impact on your health and quality of life! We can help answer questions and concerns you may have about exercise, lifestyle, medications, diet, stress and anxiety which are common following a hospitalization. WE monitor ECG and vital signs during exercise and discuss your progress with you and report to your physician(s). Cardiac Rehab is proven to help reduce readmissions, improve functional capacity and lower recurrence of problems with your heart. Our Cardiac Rehab program is Certified by the [place] [employer] Pulmonary [employer] (AACVPR) and Accredited by the [place] [employer] through our [facility]. You can contact us at . We invite you to call us with your questions or to get started in our program. If you have other questions or concerns be sure to ask your physician/provider during your follow-up visit. WE look forward to seeing you!
--- NOTE | 2024-06-17 13:49 | CRPH1.INSTRU ---
General Education Discussed with Patient CAD and cardiac anatomy and function:: Patient communicates acknowledgment, Family communicates acknowledgment, Patient returns demonstration and Family returns demonstration Explanation of diagnoses and procedures:: Patient communicates acknowledgment, Family communicates acknowledgment, Patient returns demonstration and Family returns demonstration Sign/Symptoms of AR:: Patient communicates acknowledgment, Family communicates acknowledgment, Patient returns demonstration and Family returns demonstration Antiplatelet therapy: Patient communicates acknowledgment, Family communicates acknowledgment, Patient returns demonstration and Family returns demonstration Proper use of NTG-SL: Not instructed Emergency procedures and activation of EMS: Patient communicates acknowledgment, Family communicates acknowledgment, Patient returns demonstration and Family returns demonstration Compliance of all prescribed medications: Patient communicates acknowledgment, Family communicates acknowledgment, Patient returns demonstration and Family returns demonstration Smoking Risk Factors Patient Nicotine/Smoking Risk Factors Are:: Never smoked Response Code Nicotine/Smoking Response Code:: Patient communicates acknowledgment, Family communicates acknowledgment, Patient returns demonstration and Family returns demonstration Dyslipidemia Recommendations Recommendations Include:: Therapeutic Lifestyle Change dietary guidelines Response Code Dyslipidemia Response Code:: Patient communicates acknowledgment, Family communicates acknowledgment, Patient returns demonstration and Family returns demonstration Overweight/Obesity Risk Factors Patient Overweight/Obesity Risk Factors Are:: BMI Normal [18-25 & < 65 years old] (21.9) Recommendations Recommendations Include:: Exercise 5-7 times/week Response Code Overweight/Obesity:: Patient communicates acknowledgment, Family communicates acknowledgment, Patient returns demonstration and Family returns demonstration Hypertension Risk Factors Patient Hypertension Risk Factors Are:: No documented hx of HTN Heart Disease Risk Factors Patient Heart Disease Risk Factors Are:: Family history of heart disease < 65 years old Recommendations Recommendations Include:: Educated family members of their risk and Educated family members of importance of prevention of heart disease Response Code Heart Disease Response Code:: Patient communicates acknowledgment, Family communicates acknowledgment, Patient returns demonstration and Family returns demonstration Diabetes Risk Factors Patient Diabetes Risk Factors Are:: No documented hx of diabetes Metabolic Syndrome Recommendations Recommendations Include:: Does not meet criteria Sedentary Recommendations Recommendations Include:: Aerobic exercise 5-7 times/week for 20-30 minutes continuously, Benefits of regular exercise, Discussed home walking program and Monitored Outpatient Cardiac Rehab Response Code Sedentary Response Code:: Patient communicates acknowledgment, Family communicates acknowledgment, Patient returns demonstration and Family returns demonstration Stress Recommendations Recommendations Include:: Identification of stressors, and assessment of coping skills and Stress management techniques Response Code Stress Response Code:: Patient communicates acknowledgment, Family communicates acknowledgment, Patient returns demonstration and Family returns demonstration
--- NOTE | 2024-06-17 17:45 | CASEMGMT ---
RN BRIANNA ALTERATIONS EXPERT BRIANNA?to room to meet with patient for initial transition planning/care coordination assessment. RN BRIANNA?introduced self and role at [facility]. Pt voices understanding and consents to assessment?at this time. Pt sitting up in bed in no distress at this time. @ bedside. Pt is A/O at this time and answers all questions appropriately. Care providers, pharmacy, and demographics verified/updated at this time. Strata:?1 PCP: Eric Hawthorne. Pt interested in switching to [facility] PCP in [place], preferably Dr Reis, but they state they will take local PCP directory. Given at this time. Specialists: none Preferred Pharmacy: [facility] @ [email or web address]. Otherwise, uses [facility] in [place] Insurance: [employer] Prescription Benefit: Yes. Pt to discharge home on [place]. Made aware [facility] pharmacy will apply the savings card, but he was also provided w/the card, in the event he does not get meds from [facility] @ [place] and instructed on use. Made aware to f/u with granite cutter apprentice if refills are not affordable. Living Will/HPOA: [facility] does not have LW or HCPOA . Interested in more information but [facility] does not want to talk with SW at this time to complete paperwork. Educated patient that, if patient so chooses, can come back to [facility] and meet with a SW as an outpatient to complete health care advanced directives. Patient expresses understanding. LNOK: , Scarlett Living Arrangements: Lives w/ and 3 children. 2 other children are away @ college. Pt is independent. Transportation:?Pt and both drive. DME: Denies using any DME and denies needs. HHC/SNF: No hx. Has done OP therapy after shoulder surgery in the past. No needs identified. Pt wishes to return home and [facility] has no concerns with going home at time of discharge. PLAN: Home Pato SIMPSON RN, CM
[2024-06-17] MEDS: Atorvastatin Calcium 80 MG Tablet PO (21:07)
[2024-06-17] MEDS: TICAGRELOR 90 MG TABLET PO (21:07)
[2024-06-17] MEDS: hydrOXYzine PAM 25 MG Capsule PO (21:08)
[2024-06-17] MEDS: Metoprolol Tartrate 25 MG Tablet 12.5 MG PO (21:08)
[2024-06-18 03:00] VITALS: BP 115/76; PULSE 68; RESP 18; TEMP 36.2; O2SAT 97
--- NOTE | 2024-06-18 05:14 | EKG12_ITS ---
Test Reason : AM EKG Blood Pressure : / mmHG Vent. Rate : 060 BPM Atrial Rate : 060 BPM P-R Int : 144 ms QRS Dur : 084 ms QT Int : 394 ms P-R-T Axes : 073 043 046 degrees QTc Int : 394 ms Normal sinus rhythm Normal ECG When compared with ECG of 17-JUN-2024 14:25, MANUAL COMPARISON REQUIRED, DATA IS UNCONFIRMED Confirmed by SCOTTY WILKERSON, PATRICIA ([id number]), image editor ATUL PIZARRO ([id number]) on 06/21/2024 11:29:59 AM Referred By: Mauricio Go Confirmed By:PATRICIA FAJARDO MD
[2024-06-18 07:00] VITALS: PULSE 62
[2024-06-18 07:19] LABS: Hemoglobin 15.2 g/dL (13.0-16.5); Mean Corp Hgb Conc 34.5 g/dL (32-36); Mean Corpuscular Hgb 30.6 pg (27.0-32.0); Mean Corpuscular Volume 88.5 fL (80-94); Mean Platelet Vol. 10.5 fl (6.2-12.0); Platelet Count 265 K/mm3 (150-450); RBC Distribution Width CV 11.9 % (11.6-14.6); RBC Distribution Width SD 38.1 fl (35.1-43.9); Red Blood Count 4.97 M/mm3 (4.6-6.2)
[2024-06-18 07:38] LABS: ALB/GLOB Ratio 1.1 RATIO (0.9-2.4); AST(SGOT) 15 U/L (15-37); Alanine Aminotransfer ALT/SGPT 26 U/L (16-61); Albumin, Serum 3.9 g/dL (3.2-5.0); Alkaline Phosphatase 79 U/L (45-117); Anion Gap 6 (5-15); BUN 16 mg/dL (7-18); BUN/Creat Ratio 16.5 RATIO (10-20); Calcium,Total 9.2 mg/dL (8.5-10.1); Chloride 108 mmol/L (98-107); Creatinine, Serum 0.97 mg/dL (0.70-1.30); EST Glomerular Filtration Rate 88 mL/min (>60); Est Glom Filt Rate - Afr Amer 106 mL/min (>60); Estimated Creatinine Clearance 100.85 ml/min; Globulin 3.4 g/dL (2.2-4.2); Glucose 96 mg/dL (74-106); Potassium 3.8 mmol/L (3.5-5.1); Protein, Total 7.3 g/dL (6.4-8.2); Sodium Level 138 mmol/L (136-145)
--- NOTE | 2024-06-18 07:44 | PCM.PN.HOSP ---
Reason for Visit Reason for Visit: Diagnoses Chest pain, unspecified (06/17/24) Subjective Subjective Patient underwent left heart catheterization with PCI with DANO to mid LAD lesion Objective Data Objective Data Vital Signs: Vital Signs Temp Pulse Resp BP Pulse Ox O2 Del Method 97.1 F L 68 18 115/76 97 Room Air 06/18/24 03:00 06/18/24 03:00 06/18/24 03:00 06/18/24 03:00 06/18/24 03:00 06/18/24 03:00 Oxygen Delivery Method Room Air Weight: 77.4 kg Body Mass Index (BMI) 21.9 Intake & Output: Intake and Output for Last 24 Hours 06/16/24 06/17/24 06/18/24 23:59 23:59 23:59 Intake Total 487.5 / 487.5 Balance 487.5 / 487.5 Lab / Micro Data 06/18/24 06:20 06/18/24 06:20 Labs: Laboratory Results - last 24 hr 06/18/24 06:20: WBC 7.0, RBC 4.97, Hgb 15.2, Hct 44.0, MCV 88.5, MCH 30.6, MCHC 34.5, RDW Std Deviation 38.1, RDW Coeff of Sharon 11.9, Plt Count 265, MPV 10.5, Sodium 138, Potassium 3.8, Chloride 108 H, Carbon Dioxide 24.0, Anion Gap 6, BUN 16, Creatinine 0.97, Estim Creat Clear Calc 100.85, Est GFR (MDRD) Af Amer 106, Est GFR (MDRD) Non-Af 88, BUN/Creatinine Ratio 16.5, Glucose 96, Calcium 9.2, Total Bilirubin 1.00, AST 15, ALT 26, Alkaline Phosphatase 79, Total Protein 7.3, Albumin 3.9, Globulin 3.4, Albumin/Globulin Ratio 1.1 Physical Exam Narrative GENERAL: cooperative HEENT: Atraumatic; normocephalic EYES; Anicteric, Normal Conjunctiva NECK; supple, normal thyroid, RESPIRATORY: Diminished to auscultation CARDIOVASCULAR: Regular S1 S2, GI: soft, normoactive bowel sounds, : No Renal angle tenderness; EXTREMITIES: No edema, no clubbing, MUSCULOSKELETAL: no muscle wasting NEURO: Awake; no lateralizing signs. SKIN: No Rash PSYCH; Flat affect Assessment & Plan Assessment/Plan (1) Chest pain: PLAN: Plan Patient is a 49-year-old gentleman presenting with chest pain 1. Chest pain ? Patient has been admitted to a monitored bed plan is to rule out [place] with serial cardiac enzymes plan is for patient to undergo subsequent evaluation with a nuclear stress test ? Patient stress test came back positive for stress-induced ischemia. Case discussed with Dr. Rm plans for patient to undergo left heart catheterization with intervention if warranted ? 06/18/2024;Patient underwent left heart catheterization with PCI with DANO to mid LAD lesion. Patient subsequently started on guideline directed medical therapy 2. Hypertension ? Blood pressure controlled, home medications continued with dose adjustment as needed 3. Depression with anxiety ? Patient is on bupropion as well as hydroxyzine did continue 4. DVT prophylaxis ? SC Lovenox Time spent in the patient's overall evaluation,decision-making process, review of diagnostic data, adjustment of management, discussion with other providers, nursing nursing and ancillary staff involved in patient's care documentation, 40 minutes
[2024-06-18 07:50] VITALS: BP 130/87; PULSE 79; RESP 16; TEMP 36.6; O2SAT 99
[2024-06-18 08:33] VITALS: O2SAT 95
[2024-06-18] MEDS: Aspirin 81 MG TAB.CHEW PO (09:05)
[2024-06-18] MEDS: TICAGRELOR 90 MG TABLET PO (09:05)
[2024-06-18 09:06] VITALS: BP 130/87; PULSE 79
[2024-06-18] MEDS: Losartan Potassium 25 MG Tablet PO (09:06)
[2024-06-18] MEDS: Metoprolol Tartrate 25 MG Tablet 12.5 MG PO (09:06)
[2024-06-18] MEDS: buPROPion (SR) 150 MG Tablet.SA PO (09:07)
--- NOTE | 2024-06-18 10:00 | EKG12_ITS ---
Test Reason : PCI Blood Pressure : / mmHG Vent. Rate : 068 BPM Atrial Rate : 068 BPM P-R Int : 160 ms QRS Dur : 090 ms QT Int : 380 ms P-R-T Axes : 068 042 042 degrees QTc Int : 404 ms Normal sinus rhythm Normal ECG When compared with ECG of 17-JUN-2024 05:36, MANUAL COMPARISON REQUIRED, DATA IS UNCONFIRMED Confirmed by SCOTTY WILKERSON, PATRICIA ([id number]), editor producer ATUL PIZARRO ([id number]) on 06/21/2024 11:27:19 AM Referred By: Mauricio Go Confirmed By:PATRICIA FAJARDO MD
--- NOTE | 2024-06-18 10:29 | PCM.DC.SUM ---
Providers Date of Admission: 06/17/24 Date of Discharge: 06/18/24 Primary Care Physician: PERFECTO Jefferson Reason For Visit: CHEST PAIN Diagnosis Discharge Diagnosis (1) Chest pain: Status: Acute Code(s): R07.9 - Chest pain, unspecified Plan Patient is a 49-year-old gentleman presenting with chest pain 1. Chest pain ? Patient has been admitted to a monitored bed plan is to rule out [place] with serial cardiac enzymes plan is for patient to undergo subsequent evaluation with a nuclear stress test ? Patient stress test came back positive for stress-induced ischemia. Case discussed with Dr. Rm plans for patient to undergo left heart catheterization with intervention if warranted ? 06/18/2024;Patient underwent left heart catheterization with PCI with DANO to mid LAD lesion. Patient subsequently started on guideline directed medical therapy 2. Hypertension ? Blood pressure controlled, home medications continued with dose adjustment as needed 3. Depression with anxiety ? Patient is on bupropion as well as hydroxyzine did continue 4. DVT prophylaxis ? SC Lovenox Time spent in the patient's overall evaluation,decision-making process, review of diagnostic data, adjustment of management, discussion with other providers, nursing nursing and ancillary staff involved in patient's care documentation, 40 minutes Medications at Discharge Home Medications bupropion HCl 150 mg tablet,12 hr sustained-release 150 mg PO DAILY mental health 06/16/24 hydroxyzine HCl 25 mg tablet 25 mg PO QHS PRN insomnia 06/16/24 losartan 25 mg tablet 25 mg PO DAILY blood pressure 06/16/24 sildenafil 50 mg tablet 50 mg PO DAILY PRN intercourse 06/16/24 aspirin 81 mg chewable tablet 81 mg PO BREAKFAST #30 tabs 06/18/24 aspirin 81 mg tablet,delayed release 81 mg PO DAILY #90 tabs 06/18/24 atorvastatin 80 mg tablet 80 mg PO QHS #30 tabs 06/18/24 atorvastatin 80 mg tablet 80 mg PO QHS #90 tabs 06/18/24 metoprolol tartrate 25 mg tablet 12.5 mg (1/2 x 25 mg) PO BID 30 days #30 tabs 06/18/24 metoprolol tartrate 25 mg tablet 12.5 mg (1/2 x 25 mg) PO BID 90 days #90 tabs 06/18/24 ticagrelor 90 mg tablet (Brilinta) 90 mg PO BID #180 tabs 06/18/24 ticagrelor 90 mg tablet (Brilinta) 90 mg PO BID 30 days #60 tabs 06/18/24 Physical Exam Narrative GENERAL: cooperative HEENT: Atraumatic; normocephalic EYES; Anicteric, Normal Conjunctiva NECK; supple, normal thyroid, RESPIRATORY: Diminished to auscultation CARDIOVASCULAR: Regular S1 S2, GI: soft, normoactive bowel sounds, : No Renal angle tenderness; EXTREMITIES: No edema, no clubbing, MUSCULOSKELETAL: no muscle wasting NEURO: Awake; no lateralizing signs. SKIN: No Rash PSYCH; Flat affect Weight / BMI Weight Weight: 77.4 kg Body Mass Index (BMI) 21.9 ABG / Lab / Microbiology Data 06/18/24 06:20 06/18/24 06:20 Laboratory: Laboratory Results - last 24 hr 06/18/24 06:20: WBC 7.0, RBC 4.97, Hgb 15.2, Hct 44.0, MCV 88.5, MCH 30.6, MCHC 34.5, RDW Std Deviation 38.1, RDW Coeff of Sharon 11.9, Plt Count 265, MPV 10.5, Sodium 138, Potassium 3.8, Chloride 108 H, Carbon Dioxide 24.0, Anion Gap 6, BUN 16, Creatinine 0.97, Estim Creat Clear Calc 100.85, Est GFR (MDRD) Af Amer 106, Est GFR (MDRD) Non-Af 88, BUN/Creatinine Ratio 16.5, Glucose 96, Calcium 9.2, Total Bilirubin 1.00, AST 15, ALT 26, Alkaline Phosphatase 79, Total Protein 7.3, Albumin 3.9, Globulin 3.4, Albumin/Globulin Ratio 1.1 D/C Instructions Discharge Diet: Low fat / Low cholesterol Meaningful Use Info Meaningful Use Meaningful Use Diagnoses (Choose all that apply): AMI AMI/Post PCI/Angioplasty Aspirin given w/in 24hrs of arrival?: Yes ASA at discharge?: Yes Antiplatelet Therapy at Discharge:: Yes Statins at discharge?: Yes Mega/ARB at discharge?: Yes Beta Anna at discharge?: Yes Done w/ Acute ME measure.: Yes Ischemic Stroke Statin Dosing Therapy Reference: STATIN DOSE THERAPY REFERENCE: * Patients > 75 years receive moderate or high dose statin therapy. * Patients 75 years or YOUNGER should receive HIGH intensity statin dose unless contraindicated. You will be required to document reason for non-treatment if statin daily dose does not meet guidelines. HIGH DOSE STATIN THERAPY DAILY Atorvastatin > than or = to 40 mg Rosuvastatin > than or = to 20 mg Amlodipine + Atorvastatin > than or = to 2.5/40 mg Ezetimibe + Simvastatin 10/80 mg Simvastatin 80mg Discharge Plan Admission Admit Date/Time: 06/17/24 14:25 Primary Reason for Your Visit: chest pain Attending Provider: Olvin Whalen Primary Care Provider: Eric Hawthorne Consulting Providers: Cheli Alarcon Discharge Orders/Prescriptions Prescriptions: New atorvastatin 80 mg Tablet 80 mg PO QHS Qty: 30 0RF atorvastatin 80 mg tablet 80 mg PO QHS Qty: 90 0RF metoprolol tartrate 25 mg Tablet 12.5 mg PO BID 30 Days Qty: 30 0RF metoprolol tartrate 25 mg tablet 12.5 mg PO BID 90 Days Qty: 90 0RF Brilinta 90 mg Tablet 90 mg PO BID 30 Days Qty: 60 0RF Brilinta 90 mg tablet 90 mg PO BID Qty: 180 0RF aspirin 81 mg Tablet,Chewable 81 mg PO BREAKFAST Qty: 30 0RF aspirin 81 mg tablet,delayed release (DR/EC) 81 mg PO DAILY Qty: 90 0RF Continued bupropion HCl 150 mg tablet sustained-release 12 hr 150 mg PO DAILY hydroxyzine HCl 25 mg tablet 25 mg PO QHS PRN (Reason: insomnia) sildenafil 50 mg tablet 50 mg PO DAILY PRN (Reason: intercourse) losartan 25 mg tablet 25 mg PO DAILY Referrals / Follow Up: Eric Hawthorne PA [Primary Care Provider] - Within 2 Weeks Disposition Disposition (needs filled in before D/C Order can be placed): Home, Self Care Charges/Coding Visit Charges Inpatient E&M: 60107 Disch Hosp >30min
--- NOTE | 2024-06-18 10:30 | ECHOD_ITS ---
Reason For Study: CHEST PAIN Procedure This was a 2D Doppler, Color Flow transthoracic echocardiogram. Exam performed portable in patient room. Left Ventricle Normal LV size. The estimated ejection fraction is 65 %. No evidence for diastolic dysfunction. No regional wall motion abnormalities noted. Right Ventricle Normal RV size. Normal systolic function. Atria The left and right atria are normal. No doppler evidence for ASD. Mitral Valve There is no mitral valve stenosis. No mitral valve insufficiency. Tricuspid Valve There is no tricuspid stenosis. Unable to estimate RV systolic pressure due to inadequate jet, pulmonary artery pressure probably normal. Aortic Valve Trisinus/trileaflet aortic valve. There is no aortic stenosis. No aortic valve insufficiency. Pulmonic Valve There is no pulmonic valvular stenosis. Trivial pulmonic valve insufficiency. Great Vessels Normal aortic root. Pericardium/Pleural No pericardial effusion. MMode/2D Measurements & Calculations LVIDd: 4.9 cm IVSd: 1.0 cm Ao root diam: 3.7 cm LVIDs: 3.1 cm LVPWd: 1.0 cm FS: 37.7 % LAV(MOD-sp4): 32.5 ml LVAd ap4: 32.2 cm2 SV(MOD-sp4): 65.7 ml LVLd ap4: 8.6 cm EDV(MOD-sp4): 102.3 ml EDV(sp4-el): 102.2 ml LVAs ap4: 16.4 cm2 LVLs ap4: 6.7 cm ESV(MOD-sp4): 36.6 ml ESV(sp4-el): 33.9 ml EF(MOD-sp4): 64.2 % EF(sp4-el): 66.8 % SV(sp4-el): 68.3 ml LA A4 area: 14.7 cm2 LA dimension(2D): 3.1 cm RA A4 area: 16.7 cm2 TAPSE: 2.2 cm Time Measurements MV dec time: 0.19 sec Doppler Measurements & Calculations MV E max hugo: 51.8 cm/sec Lat Peak E' Hugo: 13.6 cm/sec Med Peak E' Hugo: 11.8 cm/sec MV A max hugo: 42.0 cm/sec E/E' lat: 3.8 E/E' med: 4.4 MV E/A: 1.2 MV V2 max: 62.2 cm/sec MV P1/2t max hugo: 69.4 cm/sec Ao V2 max: 112.1 cm/sec MV max P.5 mmHg MV P1/2t: 62.5 msec Ao max P.0 mmHg MV V2 mean: 34.8 cm/sec Ao V2 mean: 81.8 cm/sec MV mean P.58 mmHg MV dec slope: 325.0 cm/sec2 Ao mean P.9 mmHg MV V2 VTI: 18.4 cm MVA(P1/2t): 3.5 cm2 Ao V2 VTI: 24.3 cm AV (velocity ratio): 0.68 LV V1 max: 74.4 cm/sec PA V2 max: 83.5 cm/sec LV V1 max P.2 mmHg PA V2 mean: 63.6 cm/sec LV V1 mean P.4 mmHg LV V1 mean: 58.4 cm/sec LV V1 VTI: 16.4 cm ECHO/Echo Complete Interpretation Summary The estimated ejection fraction is 65 %. No evidence for diastolic dysfunction. Ordering Physician: Olvin Whalen Referring Physician: Eric Hawthorne Performed By: Susan Ibrahim, DAMIAN, RVT
[2024-06-18 10:35] VITALS: BP 130/87; PULSE 79; RESP 16; TEMP 36.6; O2SAT 99
== END 2024-06-18 13:52 | disposition home or self-care (01) | DRG 322 ==
LOC: ED 19:35 → PCU 20:28
PROVIDERS: Nurse Practitioner; Specialist; Admitting Provider Family Medicine; Emergency Provider Emergency Medicine; PCP Physician Assistant; Referring Provider Emergency Medicine; Visit Provider Internal Medicine
DX: I25.118 Atherosclerotic heart disease of native coronary artery with other forms of angina pectoris (principal); F32.A Depression, unspecified; I10 Essential (primary) hypertension; F41.9 Anxiety disorder, unspecified; G47.00 Insomnia, unspecified; Z79.899 Other long term (current) drug therapy; Z82.49 Family history of ischemic heart disease and other diseases of the circulatory system; R94.39 Abnormal result of other cardiovascular function study
CPT/HCPCS: 36415; 71046; 78452; 80048; 80053; 80061; 80307; 83735; 84443; 84484; 85025; 85027; 92928; 93005; 93017; 93306; 93454; 96360; 96361; 99221; 99285; A9500; Q9967; A4216; C1725; C1769; C1874; C1887; C1894; C9600; G0378; J1327

== ENCOUNTER → 2024-07-13 | Outpatient (CLI) | payer BC, SELFPAY ==
[2024-07-15 14:10] LABS: Lipoprotein A 212.4 nmol/L (<75.0)
== END | disposition home or self-care (01) ==
LOC: LAB 15:39
PROVIDERS: PCP Family Medicine; Referring Provider Nurse Practitioner Family; Visit Provider Nurse Practitioner Family
DX: I10 Essential (primary) hypertension (principal); E78.5 Hyperlipidemia, unspecified; Z95.5 Presence of coronary angioplasty implant and graft
CPT/HCPCS: 36415; 83695

== ENCOUNTER → 2024-11-25 | Outpatient (CLI) | payer BC, SELFPAY ==
[2024-11-25 09:54] LABS: AST(SGOT) 34 U/L (<=37); Alanine Aminotransfer ALT/SGPT 59 U/L (<=46); Albumin, Serum 4.4 g/dL (3.5-5.0); Alkaline Phosphatase 86 U/L (40-129); Bilirubin, Direct 0.33 mg/dL (0.00-0.30); Cholesterol 109 mg/dL (<=200); Globulin 2.8 g/dL (2.2-4.2); High Density Lipoprotein 47 mg/dL; Low Density Lipoprotein Calc. 46 mg/dL; Protein, Total 7.2 g/dL (5.9-8.4); Total Bilirubin 0.75 mg/dL (0.00-1.30); Triglycerides 80 mg/dL; Very Low Density Lipoprotein 16 mg/dL (5-40)
== END | disposition home or self-care (01) ==
LOC: LAB 08:07
PROVIDERS: PCP Family Medicine; Referring Provider Internal Medicine Cardiovascular Disease; Visit Provider Internal Medicine Cardiovascular Disease
DX: E78.2 Mixed hyperlipidemia (principal)
CPT/HCPCS: 36415; 80061; 80076

== ENCOUNTER 2024-12-18 10:51 | Emergency (ER) | payer BC, SELFPAY ==
[2024-12-18 10:52] VITALS: BP 122/84; PULSE 56; RESP 13; TEMP 36.3; O2SAT 97; BMI 24.2
--- NOTE | 2024-12-18 11:10 | RAD_ITS ---
PROCEDURE: ANKLE MIN 3 VIEWS 12/18/2024 REASON FOR EXAM: ANKLE PAIN TECHNIQUE: 3 views of the right ankle COMPARISON: None. FINDINGS: Bones: No fracture. No dislocation. Joints: No dislocation or abnormality with articulations Soft tissues: Unremarkable Other: RAD/Ankle min 3 Views IMPRESSION: No acute process. Reading [facility]
--- NOTE | 2024-12-18 11:10 | ED.VIS.LOWEX ---
HPI <PERFECTO Rice - Last Filed: 12/18/24 12:33> History of Present Illness Chief Complaint: Lower Extremity Injury Narrative Narrative: Patient presenting today with pain to his right ankle after an injury occurred last night while he was playing basketball with his son. He thinks he may have twisted his ankle. He is able to ambulate but has had pain with bearing weight. He denies any other injury [facility] <PERFECTO Rice - Last Filed: 12/18/24 12:33> [facility] Medical History History of left heart catheterization Atherosclerosis of coronary artery of [place] heart without angina pectoris Anxiety and depression HTN (hypertension) Home Medications ?Medication ?Instructions ?Recorded ?Last Taken ?Type bupropion HCl 150 mg tablet,12 hr 150 mg PO DAILY mental health 06/16/24 06/16/24 History sustained-release hydroxyzine HCl 25 mg tablet 25 mg PO QHS PRN insomnia 06/16/24 06/15/24 History sildenafil 50 mg tablet 50 mg PO DAILY PRN intercourse 06/16/24 Unknown History aspirin 81 mg tablet,delayed 81 mg PO DAILY #90 tabs 07/13/24 Unknown Rx release atorvastatin 80 mg tablet 80 mg PO QHS #90 tabs 07/13/24 Unknown Rx losartan 25 mg tablet 25 mg PO DAILY blood pressure #90 07/13/24 Unknown Rx tabs metoprolol tartrate 25 mg tablet 12.5 mg (1/2 x 25 mg) PO BID 90 07/13/24 Unknown Rx days #90 tabs ticagrelor 90 mg tablet (Brilinta) 90 mg PO BID #180 tabs 07/13/24 Unknown Rx calcium 200 mg (carbonate, tab PO DAILY 11/02/24 Unknown History citrate)-magnesium 50 mg (as oxide) tablet cholecalciferol (vitamin D3) 25 25 mcg PO QDAY 11/02/24 Unknown History mcg (1,000 unit) capsule creatine monohydrate ea PO DAILY 11/02/24 Unknown History ginkgo biloba 40 mg tablet 40 mg PO QDAY 11/02/24 Unknown History multivitamin 1 tab PO QDAY 11/02/24 Unknown History omega 7-gfg-bof-fish oil 300 1 cap PO QDAY 11/02/24 Unknown History mg-1,000 mg capsule (Fish Oil) Allergy/AdvReac Type Severity Reaction Status Date / Time Penicillins (PCN) Allergy Mild Rash Verified 12/18/24 10:54 pollen extracts (pollens) Allergy Mild Other Verified 12/18/24 10:54 Family History Mother Carotid arterial disease Hypertension Father Hypertension CVA (cerebral vascular accident) Brother Hypertension Myocardial infarction First heart attack at age 39. CAD (coronary artery disease) Heart disease Surgical History History of deviated nasal septum History of coronary artery stent placement (06/17/24) History of shoulder surgery Social History household members: spouse, family and children Smoking Status: Never smoker alcohol intake: current alcohol intake frequency: holidays/special occasions only substance use type: does not use caffeine: Yes Type: coffee Number of servings: 2, tea and other Number of servings: 1 ROS <PERFECTO Rice - Last Filed: 12/18/24 12:33> ROS ED Constitutional Constitutional ED: Denies chills or fever(s) Cardiovascular Cardiovascular: Denies chest pain Respiratory/Chest Respiratory/Chest: Denies dyspnea Musculoskeletal Musculoskeletal: Reports arthralgias Integumentary Denies Abrasions Neurologic Neurologic: Denies paresthesias EXAM <PERFECTO Rice - Last Filed: 12/18/24 12:33> Physical Exam Const Vital Signs: 12/18/24 10:52 Temperature 97.3 F L Temperature Source Temporal Pulse Rate 56 L Respiratory Rate 13 Blood Pressure 122/84 H Blood Pressure Mean 96 Pulse Ox 97 Oxygen Delivery Method Room Air Positive well nourished, well developed and no apparent distress General Appearance ED: well developed HEENT Reports normocephalic and head/scalp atraumatic Mouth ED: Yes moist mucous membranes normal Eyes PERRL and EOMs intact bilaterally Neck full ROM and supple Chest Wall inspection of chest normal Resp normal respiratory effort and clear to auscultation bilaterally Cardio regular rate and regular rhythm Back/Spine normal ROM and normal to inspection Extremity normal to inspection and full ROM Extremity Narrative: No tenderness palpation to the right medial or lateral malleolus, no tenderness to the right foot. Right DP pulse 2+, good cap refill, sensation intact. Pain along the ATTL. Neuro oriented x3, CN's II-XII intact bilaterally, moves all extremities, no focal motor deficits and no sensory deficits noted Sensorium / Orientation: awake and alert Psych mental status grossly normal and thought process normal Skin no rashes or lesions noted and no wounds <Dr. Rafat Trujillo DO - Last Filed: 12/18/24 12:31> Physical Exam Const Vital Signs: 12/18/24 10:52 Temperature 97.3 F L Temperature Source Temporal Pulse Rate 56 L Respiratory Rate 13 Blood Pressure 122/84 H Blood Pressure Mean 96 Pulse Ox 97 Oxygen Delivery Method Room Air MDM <PERFECTO Rice - Last Filed: 12/18/24 12:33> MDM MDM Narrative Medical decision making narrative: Patient presenting today with pain to his right ankle after an injury occurred while he was playing basketball with his son yesterday. He does not have any bony tenderness in his foot or ankle suspect ankle sprain. He is somewhat tender along the ATTL. Offered analgesia and he declined. X-ray negative for fracture. Patient given an Mega bandage. RICE instructions discussed. He can take Tylenol as needed for pain and will be discharged home in stable condition. Recommended following up with PCP in 1 week if no improvement of pain. ED attending note: I evaluated the patient in conjunction with the SHAKIR. I agree with his/her statements and above findings. I have personally performed a face to face assessment of the patient and have reviewed the SHAKIR Note. I performed a substantive portion of the visit including all aspects of the following. I personally saw the patient performed chart review, physical exam, reviewed labs, imaging (if obtained), and formulated a treatment and management plan. History as above Exam: Neurovascular intact lower extremity. Compartments are soft. Medial ankle TTP. No obvious open fractures or gross deformities. MDM/plan: Obtained an x-ray. X-ray was read/reviewed/interpreted personally by myself. Showed no evidence of obvious bony injury such as fracture or dislocation. Patient likely sent from ankle sprain This note was generated with Firefly Mediaation software. It may contain incorrect words, spelling, and punctuation that were not noted in review of the chart prior to signing. Radiography X-Ray: Read by ED Physician Diagnostic Testing: Clinical Impression(s) from Imaging Studies Ankle X-Ray 12/18/24 11:10 IMPRESSION: No acute process. Reading Location: [facility] OF [facility] <Dr. Rafat Trujillo, DO - Last Filed: 12/18/24 12:31> MDM MDM Narrative Medical decision making narrative: Patient presenting today with pain to his right ankle after an injury occurred while he was playing basketball with his son yesterday. He does not have any bony tenderness in his foot or ankle suspect ankle sprain. He is somewhat tender along the ATTL. Offered analgesia and he declined. ED attending note: I evaluated the patient in conjunction with the SHAKIR. I agree with his/her statements and above findings. I have personally performed a face to face assessment of the patient and have reviewed the SHAKIR Note. I performed a substantive portion of the visit including all aspects of the following. I personally saw the patient performed chart review, physical exam, reviewed labs, imaging (if obtained), and formulated a treatment and management plan. History as above Exam: Neurovascular intact lower extremity. Compartments are soft. Medial ankle TTP. No obvious open fractures or gross deformities. MDM/plan: Obtained an x-ray. X-ray was read/reviewed/interpreted personally by myself. Showed no evidence of obvious bony injury such as fracture or dislocation. Patient likely sent from ankle sprain This note was generated with [employer] dictation software. It may contain incorrect words, spelling, and punctuation that were not noted in review of the chart prior to signing. Radiography Diagnostic Testing: Clinical Impression(s) from Imaging Studies Ankle X-Ray 12/18/24 11:10 IMPRESSION: No acute process. Reading Location: [facility] Discharge Plan Triage Chief Complaint: Lower Extremity Injury ED Midlevel Provider: Jordyn Valadez ED Provider: Rafat Trujillo Dx/Rx/DC Orders Clinical Impression: Ankle sprain Instructions: ED Ankle Sprain (Adult) Prescriptions: No Action Brilinta 90 mg tablet 90 mg PO BID Qty: 180 3RF metoprolol tartrate 25 mg tablet 12.5 mg PO BID 90 Days Qty: 90 3RF losartan 25 mg tablet 25 mg PO DAILY Qty: 90 3RF atorvastatin 80 mg tablet 80 mg PO QHS Qty: 90 3RF aspirin 81 mg tablet,delayed release (DR/EC) 81 mg PO DAILY Qty: 90 3RF multivitamin Tablet 1 tab PO QDAY cholecalciferol (vitamin D3) 25 mcg (1,000 unit) capsule 25 mcg PO QDAY omega 8-yzg-tgi-fish oil [Fish Oil] 300-1,000 mg capsule 1 cap PO QDAY calcium carb and citrat-mag ox 200 mg calcium- 50 mg tablet PO DAILY ginkgo biloba 40 mg tablet 40 mg PO QDAY Rx Instructions: give with meal/snack creatine monohydrate Powder PO DAILY bupropion HCl 150 mg tablet sustained-release 12 hr 150 mg PO DAILY hydroxyzine HCl 25 mg tablet 25 mg PO QHS PRN (Reason: insomnia) sildenafil 50 mg tablet 50 mg PO DAILY PRN (Reason: intercourse) Primary Care Provider: Stephen Reis Referrals: Stephen Reis MD [Primary Care Provider] - 1 Week if not improving Activity Restrictions/Additional Instructions: Ice and elevate the area, you can take Tylenol as needed for pain. Print Language: Khmer Disposition Disposition: Home, Self Care
== END 2024-12-18 12:37 | disposition home or self-care (01) ==
PROVIDERS: Emergency Provider Emergency Medicine; PCP Family Medicine; Visit Provider Emergency Medicine
DX: S93.401A Sprain of unspecified ligament of right ankle, initial encounter (principal); X50.1XXA Overexertion from prolonged static or awkward postures, initial encounter; Y93.67 Activity, basketball; I25.10 Atherosclerotic heart disease of native coronary artery without angina pectoris; I10 Essential (primary) hypertension; Z79.82 Long term (current) use of aspirin; Z79.01 Long term (current) use of anticoagulants; Z79.899 Other long term (current) drug therapy; Z95.5 Presence of coronary angioplasty implant and graft
CPT/HCPCS: 73610; 99282

== ENCOUNTER → 2025-04-25 | Outpatient (CLI) | payer BC, SELFPAY ==
[2025-04-25 11:48] LABS: Hematocrit 39.4 % (40-54); Hemoglobin 13.5 g/dL (13.0-16.5); Immature Granulocytes Count 0.020 X10^3/uL (0.0-0.0); Mean Corp Hgb Conc 34.3 g/dL (32-36); Mean Corpuscular Volume 90.8 fL (80-94); Mean Platelet Vol. 11.3 fl (6.2-12.0); NRBC Flagged by Analyzer 0 % (0-5); Platelet Count 201 K/mm3 (150-450); RBC Distribution Width CV 12.3 % (11.6-14.6); RBC Distribution Width SD 41.2 fl (35.1-43.9); Red Blood Count 4.34 M/mm3 (4.6-6.2); White Blood Count 5.5 K/mm3 (4.4-11.0)
== END | disposition home or self-care (01) ==
LOC: LAB 11:15
PROVIDERS: PCP Family Medicine; Referring Provider Nurse Practitioner Family; Visit Provider Nurse Practitioner Family
DX: R23.3 Spontaneous ecchymoses (principal); I25.10 Atherosclerotic heart disease of native coronary artery without angina pectoris; Z95.5 Presence of coronary angioplasty implant and graft
CPT/HCPCS: 36415; 85025

== ENCOUNTER → 2025-08-03 | Outpatient (CLI) | payer BC, SELFPAY ==
--- NOTE | 2025-08-03 15:06 | CDU_ITS ---
Reason For Study Reason For Study: CAD HX Rt. Velocities/BP Lt. Velocities/BP Prox CCA 103.6/17.9 cm/sec. Prox CCA 117.4/18.8 cm/sec. Mid CCA 102.3/16.3 cm/sec. Mid CCA 95.5/20.6 cm/sec. Dist CCA 74.0/15.1 cm/sec. Dist CCA 65.2/14.6 cm/sec. Prox ICA 42.1/11.6 cm/sec. Prox ICA 36.5/14.4 cm/sec. Mid ICA 61.3/21.2 cm/sec. Mid ICA 60.5/23.8 cm/sec. Dist ICA 48.4/17.2 cm/sec. Dist ICA 63.1/24.7 cm/sec. Rt. ICA/CCA = 0.6. Lt. ICA/CCA = 0.7. Prox ECA 67.9/7.7 cm/sec. Prox ECA 80.6/11.3 cm/sec. Rt. Vert. 51.7/11.6 cm/sec. Lt. Vert. 63.1/16.8 cm/sec. Right Extracranial There is homogeneous, smooth atherosclerotic plaque noted in the right common carotid artery. There is homogeneous, smooth atherosclerotic plaque noted in the right internal carotid artery. There is intimal thickening but no significant atherosclerotic plaque noted in the right external carotid artery. Antegrade flow is noted in the right vertebral artery. Left Extracranial There is homogeneous, smooth atherosclerotic plaque noted in the left common carotid artery. There is heterogeneous, irregular atherosclerotic plaque noted in the left internal carotid artery. There is intimal thickening but no significant atherosclerotic plaque noted in the left external carotid artery. Antegrade flow is noted in the left vertebral artery. Procedure Carotid Duplex 23289. This is a Carotid Duplex examination using B-mode, color flow and specral Doppler. Exam performed in department. VL/Carotid Duplex Ultrasound Interpretation Summary Mild (<50%) stenosis right extracranial internal carotid. Mild (<50%) stenosis left extracranial internal carotid. Patent and antegrade vertebrals bilaterally. Ordering Physician: Alex Ortega Referring Physician: Stephen Reis MD Performed By: Betsy Rogel RVT
== END | disposition home or self-care (01) ==
LOC: CVS 15:02
PROVIDERS: PCP Family Medicine; Referring Provider Nurse Practitioner Family; Visit Provider Nurse Practitioner Family
DX: I65.22 Occlusion and stenosis of left carotid artery (principal); Z95.5 Presence of coronary angioplasty implant and graft; I10 Essential (primary) hypertension; E78.2 Mixed hyperlipidemia
CPT/HCPCS: 93880